=== PATIENT | male | born 1945 | race Caucasian/White ===

== ENCOUNTER 2019-03-24 07:37 | Day surgery (SDC) | payer OTHER, MEDICARE ==
[2019-03-17 11:40] LABS: BASOPHILS # (AUTO) 0.1 X10'3 (0-0.2); EOSINOPHILS # (AUTO) 0.2 X10'3 (0-0.9); EOSINOPHILS % (AUTO) 4.4 % (0-6); LYMPHOCYTES # (AUTO) 1.3 X10'3 (1.1-4.8); LYMPHOCYTES % (AUTO) 24.7 % (21-51); MEAN CORPUSCULAR HGB CONC 34.2 g/dL (33.0-36.5); MEAN CORPUSCULAR VOLUME 87.7 FL (78-98); MEAN PLATELET VOLUME 7.7 FL (7.4-10.4); MONOCYTES # (AUTO) 0.5 X10'3 (0-0.9); MONOCYTES % (AUTO) 9.8 % (2-12); NEUTROPHILS # (AUTO) 3.2 X10'3 (1.8-7.7); NEUTROPHILS % (AUTO) 59.1 % (42-75); PRE OP HEMATOCRIT 46.2 % (42.0-52.0); PRE OP HEMOGLOBIN 15.8 g/dL (14.0-17.9); PRE OP PLATELET COUNT 183 X10'3 (140-440); RED BLOOD COUNT 5.27 X10'6 (4.70-6.10); RED CELL DISTRIBUTION WIDTH 12.9 % (11.5-14.5)
[2019-03-17 11:45] LABS: HEMOGLOBIN A1C 5.9 % (4.5-6.2)
[2019-03-17 11:51] LABS: PRE OP INR 1.1 INR; PRE OP PROTIME 11.5 SECONDS (9.0-12.0)
[2019-03-17 12:06] LABS: ALBUMIN 3.9 G/DL (3.4-5.0); ALBUMIN/GLOBULIN RATIO 1.2 (1.1-1.5); ALKALINE PHOSPHATASE 65 IU/L (46-116); BLOOD UREA NITROGEN 29 MG/DL (7-18); BUN/CREATININE RATIO 22.3 (5.4-32.0); CALCIUM 8.6 MG/DL (8.5-10.1); CHLORIDE 105 MMOL/L (99-107); PRE OP ALT 21 U/L (30-65); PRE OP ANION GAP 8 (8-16); PRE OP AST 20 U/L (10-37); PRE OP BILIRUB, TOTAL 0.7 MG/DL (0.0-1.0); PRE OP GLUCOSE 143 MG/DL (70-104); PRE OP POTASSIUM 4.8 MMOL/L (3.4-5.1); PRE OP SODIUM 140 MMOL/L (135-145); TOTAL CARBON DIOXIDE 26.6 MMOL/L (24-32); TOTAL PROTEIN 7.1 G/DL (6.4-8.2); eGFR 54 ML/MIN
[~2019-03-24] VITALS: Ht 167.6 cm; Wt 68.6 kg
[2019-03-24] VITALS (19 sets, daily range): BP systolic 91–143; BP diastolic 50–83
[~2019-03-24 07:37] MED LIST: ALBU8HFA PO; ASPI81TA52 PO; ATOR40TA72 PO; CARV6.253 PO; DOCUMENT DATE & TIME OF BETA-BLOCKER PO ONE; EXEN2PEN SQ; FLO0.4C PO; METF-950 PO; RAMI5CAP65 PO; TOPI25TA49 PO; cefazolin/dext.iso 2gm/100ml 100 ML IV ONE; famotidine 20mg tablet PO ONE; neomy sulf/polymyxin B sulf. GU irrigation 1ml amp IR ONE
[2019-03-24] MEDS ORDERED: ringers solution, lacted 1,000 ML IV SCH (08:17)
[2019-03-24] MEDS: ringers solution, lacted 1,000 ML IV SCH ×2 (08:19→13:33)
[2019-03-24] MEDS ORDERED: hydrALAZINE 20mg/ml inj. IV PRN (08:20)
[2019-03-24] MEDS ORDERED: fentaNYL/PF 50MCG/1 ML 2ML syringe IV PRN ×2 (08:20)
[2019-03-24] MEDS ORDERED: ondansetron/PF 4mg/2ml inj IV PRN ×2 (08:20→10:55)
[2019-03-24] MEDS ORDERED: labetalol 20mg/4ml (5mg/ml) syringe IV PRN (08:20)
[2019-03-24] MEDS ORDERED: morphine 4 MG/ML inj SYRINge IV PRN ×2 (08:20)
[2019-03-24] MEDS ORDERED: fentaNYL/PF 50MCG/1 ML 2ML syringe ONE (09:10)
[2019-03-24] MEDS ORDERED: MIDAZolam 1mg/ml 10ml vial ONE (09:10)
--- NOTE | 2019-03-24 10:33 | NUR ---
Received from OR via SURGICAL BED , accompanied by Anesthesiologist MARY and report given by Anesthesiolgist. PATIENT WITH 18G PIV IN LEFT FOREARM RUNNING LR AT 100. DENIES PAIN. SPINAL ANESTHESIA DERMATONE LEVEL AT T-10. CBI RUNNING TO RDZ CATHETER. DAPHNIES AND JE HOLLAND ON. ALERT AND ORIENTED. Addendum: 03/24/19 at 1057 by Corey Roldan RN, RN Amended: Links added.
[2019-03-24] MEDS ORDERED: proCHLORperazine 10 MG/2 ml inj IV PRN (10:55)
[2019-03-24] MEDS ORDERED: HYDROcodone/acetaminophen 10/325mg tab PO PRN ×2 (10:55→12:00)
[2019-03-24] MEDS ORDERED: opium/belladonna alkaloids No. 15A 30mg rectal suppository RC PRN (10:55)
[2019-03-24] MEDS ORDERED: mag hydrox/Alum hydrox/simeth 30ml oral suspension PO PRN (10:55)
[2019-03-24] MEDS ORDERED: zolpidem 5mg tablet PO PRN (10:55)
[2019-03-24] MEDS ORDERED: oxybutynin 5mg tablet PO PRN (10:55)
--- NOTE | 2019-03-24 11:35 | NUR ---
102 BG IN RR Addendum: 03/24/19 at 1135 by Corey Roldan RN RN Amended: Links added.
--- NOTE | 2019-03-24 11:43 | NUR ---
ALL CRITERIA FOR TRANSFER TO THE FLOOR HAS BEEN ACHIEVED. VSS. BED LOW, CALL LIGHT AND VS. SET IN PLACE. RN PRESENT TO ACCEPT CARE. PATIENT RESTING COMFORTABLY IN BED. BELONGINGS SENT WITH PATIENT. DRESSINGS CDI. FLEIPE NIEVES PRESENT TO ACCEPT CARE. DIRECTOR CLINICAL PHARMACOLOGY PRSENT TO SET UP VS. CARE TURNED OVER. PATIENT DENIES PAIN AND PRESENT WELL. Addendum: 03/24/19 at 1200 by Corey Hurley - FELIPE AWNG Amended: Links added.
[2019-03-24] MEDS ORDERED: dextrose 50%-water 50ml dispensing syringe IV PRN ×2 (12:20)
[2019-03-24] MEDS ORDERED: dextrose ORAL solution 15 GM/59 ML bottle PO PRN (12:20)
[2019-03-24] MEDS ORDERED: glucagon, human recombinant 1mg kit SUBCUT PRN (12:20)
[2019-03-24] MEDS ORDERED: EXENATIDE MICROSPHERES 2 MG SQ SCH (12:20)
[2019-03-24] MEDS ORDERED: MESSAGE TO PHARMACY PO ONE (12:20)
[2019-03-24] MEDS ORDERED: insulin Lispro (HumaLOG) vial - multi-dose SQ SCH (12:20)
[2019-03-24] MEDS ORDERED: albuterol 2.5 MG/3 ML nebule NEB PRN (12:20)
[2019-03-24] MEDS: potassium cl 20mEq in 1/2 NS 1,000 ML IV SCH ×3 (12:58→20:21)
[2019-03-24] MEDS: acetaminophen 325mg tablet PO PRN ×2 (14:45→23:22)
[2019-03-24] MEDS: ceFAZolin 1GM/D5W- ADD-VANTAGE 50 ML IV SCH ×2 (17:01→23:25)
--- NOTE | 2019-03-24 17:24 | NUR ---
Blood sugar was 65mg/dl, glucose shot 15gm given PO per protocol Addendum: 03/24/19 at 1931 by Petty Driver RN Repeat BS was 92mg/dl
[2019-03-24] MEDS: dextrose ORAL solution 15 GM/59 ML bottle PO PRN ×2 (17:27→17:50)
--- NOTE | 2019-03-24 18:30 | NUR ---
Patient getting uncomfortable, urine leaking out of the meatus, night nurse Sangeetha manually irrigated the teran catheter, clots noted upon irrigation. Patient stated feeling better after the irrigation.
--- NOTE | 2019-03-24 19:30 | NUR ---
Arrived on shift. Patient having excruciating ABD pain/cramping since the end of day shift. Patient has a CBI running. Urine is dark red. with no urine out of the F/C. Patient's is at bedside. Patient and anxious and really concern. Irrigated patient, small clots irrigated out and urine started draining out. Patient felt so much relief afterward. Return urine after irrigation 1200ml. Will continue with care. CBI running currently with light pink output.
--- NOTE | 2019-03-24 19:31 | NUR ---
Problems reprioritized. Patient report given, questions answered & plan of care reviewed with Sangeetha WANG.
[2019-03-24] MEDS ORDERED: lisinopril 10 MG tablet PO SCH (20:00)
[2019-03-24] MEDS ORDERED: docusate sod 100mg capsule PO SCH (20:00)
[2019-03-24] MEDS ORDERED: topiramate 25mg tablet PO SCH (20:00)
[2019-03-24] MEDS ORDERED: carvedilol 6.25mg tablet PO SCH (20:00)
[2019-03-24] MEDS ORDERED: tamsulosin 0.4mg capsule PO SCH (20:00)
[2019-03-24] MEDS ORDERED: metFORMIN 500mg tablet PO SCH (20:00)
--- NOTE | 2019-03-24 20:20 | NUR ---
Patients states he is talking in enough fluids and would like his fluids stop. Patient encourage to take in PO fluids, states understanding. IV fluids stopped.
[2019-03-24] MEDS ORDERED: atorvastatin 20mg tablet PO SCH (21:00)
[2019-03-24] MEDS ORDERED: insulin glargine (Lantus) pen - multi-dose SQ SCH (21:00)
[2019-03-25] VITALS: BP 114/56
--- NOTE | 2019-03-25 00:30 | NUR ---
CBI has been running with clamp wide open since irrigation @1900. Patient urine is looking light pink. Roller clamped rolled down to slow the drip rate. Patient doing well at this time. Will continue with care.
--- NOTE | 2019-03-25 01:09 | NUR ---
B & O suppository given. Patient having intermittent cramping. Urine is light pink in color. Patient requested for B & O to given instead of Ditropan. 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 Will continue with care.
[2019-03-25] MEDS: potassium cl 20mEq in 1/2 NS 1,000 ML IV SCH (02:51)
[2019-03-25 04:00] VITALS: BP 97/57
--- NOTE | 2019-03-25 05:00 | NUR ---
Patient states no spasm, The B & O was very effective and he was able to get some sleep. Will continue with care.
[2019-03-25 05:22] LABS: BASOPHILS # (AUTO) 0.1 X10'3 (0-0.2); BASOPHILS % (AUTO) 0.9 % (0-1); EOSINOPHILS # (AUTO) 0.2 X10'3 (0-0.9); EOSINOPHILS % (AUTO) 1.6 % (0-6); HEMATOCRIT 39.4 % (42.0-52.0); HEMOGLOBIN 13.4 g/dl (14.0-17.9); LYMPHOCYTES # (AUTO) 1.5 X10'3 (1.1-4.8); LYMPHOCYTES % (AUTO) 16.4 % (21-51); MEAN CORPUSCULAR HEMOGLOBIN 30.3 PG (27.0-31.0); MEAN CORPUSCULAR HGB CONC 34.1 g/dL (33.0-36.5); MEAN CORPUSCULAR VOLUME 88.9 FL (78-98); MEAN PLATELET VOLUME 7.7 FL (7.4-10.4); MONOCYTES % (AUTO) 10.7 % (2-12); NEUTROPHILS # (AUTO) 6.6 X10'3 (1.8-7.7); NEUTROPHILS % (AUTO) 70.4 % (42-75); PLATELET COUNT 141 X10'3 (140-440); RED BLOOD COUNT 4.44 X10'6 (4.70-6.10); RED CELL DISTRIBUTION WIDTH 12.8 % (11.5-14.5); WHITE BLOOD COUNT 9.3 X10'3 (4.5-11.0)
[2019-03-25 05:50] LABS: ANION GAP 7 (8-16); BLOOD UREA NITROGEN 16 MG/DL (7-18); BUN/CREATININE RATIO 14.8 (5.4-32.0); CALCIUM 7.9 MG/DL (8.5-10.1); CHLORIDE 110 MMOL/L (99-107); CREATININE 1.08 MG/DL (0.60-1.10); GLUCOSE 100 MG/DL (70-104); SODIUM 141 MMOL/L (135-145); TOTAL CARBON DIOXIDE 24.1 MMOL/L (24-32); eGFR 67 ML/MIN
--- NOTE | 2019-03-25 06:30 | NUR ---
Problems reprioritized. Patient report given, questions answered & plan of care reviewed with Edie WANG.
--- NOTE | 2019-03-25 06:54 | NUR ---
Patient in room [facility]. I have received report from Sangeetha WANG and had the opportunity to ask questions and assume patient care.
[2019-03-25 07:00] VITALS: BP 95/39
[2019-03-25] MEDS ORDERED: pantoprazole 40mg Tablet.DR PO SCH (07:30)
[2019-03-25] MEDS ORDERED: DOCU-148 PO (10:45)
[2019-03-25 11:00] VITALS: BP 107/48
--- NOTE | 2019-03-25 12:47 | NUR ---
patient seen by DR Madrid, encouraged to ambulate and order given to observe color. No clots seen or jaun bleeding. Urine maintains robert color. All instructions given to patient, and patient provided with leg bag , irrigation syringe, new catheter drainage bag and port for cathter irrigation tube. Spouse present for all instructions . Discharge home with follow up appointment with Dr Madrid 1245hrs, to home via private car with spouse.
== END 2019-03-25 12:23 | disposition home or self-care (01) ==
LOC: PAS 07:37 → SUR 3N 10:55 → PAS 03-25 12:23
PROVIDERS: ATTEND Urology
PROC: 0TJB8ZZ Inspection of Bladder, Via Natural or Artificial Opening Endoscopic (ICD-10-PCS; principal; 2019-03-24 08:55)
DX: N40.1 Benign prostatic hyperplasia with lower urinary tract symptoms (principal); Z01.812 Encounter for preprocedural laboratory examination; Z01.818 Encounter for other preprocedural examination; Z13.0 Encounter for screening for diseases of the blood and blood-forming organs and certain disorders involving the immune mechanism; Z87.442 Personal history of urinary calculi; N39.43 Post-void dribbling
CPT/HCPCS: 36415; 50953; 52601; 80048; 80053; 82948; 83036; 85025; 85610; 85730; 86885; 86900; 86901; 87081; 93005; J0690; J2250; J2405; J3010; A4346; A4355; G0378; J1815; J3480; J7120